=== PATIENT | male | born 1975 | race Two or more races ===

== ENCOUNTER 2018-09-07 13:59 | Emergency (ER) | payer MEDICAID, SELFPAY ==
[~2018-09-07] VITALS: Ht 177.8 cm; Wt 91.0 kg
[2018-09-07 14:03] VITALS: BP 134/84
[2018-09-07] MEDS ORDERED: IBUPROFEN 800 MG TABLET PO ONE (14:30)
[2018-09-07] MEDS ORDERED: IBUPROFEN 200 MG TABLET ONE (14:32)
== END 2018-09-07 16:01 | disposition home or self-care (01) ==
LOC: ED 15:24
DX: G89.11 Acute pain due to trauma (principal); M79.642 Pain in left hand; F17.200 Nicotine dependence, unspecified, uncomplicated; X58.XXXA Exposure to other specified factors, initial encounter; Y93.89 Activity, other specified; Y92.009 Unspecified place in unspecified non-institutional (private) residence as the place of occurrence of the external cause; Y99.8 Other external cause status
CPT/HCPCS: 29105; 99283